=== PATIENT | male | born 1950 | race Caucasian/White ===

== ENCOUNTER 2020-06-12 12:01 | IRF | payer MEDICARE, BC, SELFPAY ==
--- NOTE | 2020-06-12 11:58 | ADMGEN ---
This patient, Subhash Kirk, was admitted to [facility] Room 222-02. Patient/family oriented to hospital policies and general routines including ID bracelet, bed and alarms, visiting hours, pain management, procedures, bathroom and other care routines, personal items, smoking policy, room service/diet, and visiting hours. Information on how to activate the Rapid Response Team has been discussed. Patient/Family are encouraged to report perceived risks to care and to ask questions if they do not understand what they are told or what they should do. Arrived at 1145 via [facility] ,was transferred to bed with 4 assist, He is alert to self, does not know place or time. no c/o pain or discomfort, no SOB. per EMS vital signs stable during transport
[2020-06-12 12:07] VITALS: BP 127/74; PULSE 82; RESP 20; TEMP 36.8; O2SAT 97; BMI 20.2
--- NOTE | 2020-06-12 13:04 | WPDREHABHP ---
H&P: HPI History of Present Illness Date/Time: 06/12/20 13:04 Chief Complaint: bilateral watershed MCA ischemic strokes with dysphagia, left hemiparesis, dysphasia, Narrative: HISTORY OF PRESENT ILLNESS: 70 years old right-handed male has been admitted to the rehab floor of [facility] with primary rehab impairment category of 0 1-stroke and etiological diagnosis of bilateral watershed MCA ischemic strokes with comorbid conditions of 1. Hypertension 2. Hyperlipidemia 3. Tobacco abuse. the patient was seen [id number] on June 12, 2020 at 1:00 p.m. #H/P. 70 years old right-handed male with previous medical history of significant stroke, hypertension, and hyperlipidemia, was transferred to [facility] from 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 The patient's reported that he was last known well on May 24, 2020 then started behaving strangely and having difficulty with speech. This continued throughout the week and then started complaining of right upper extremity weakness, so his transported him to the emergency room. Initial CT scan and CTA revealed a subacute left posterior watershed infarct and minimal evidence of internal watershed infarct also on the same side especially anteriorly. Similarly he had what seems to be an older infarct right occipital region. CTA revealed an occluded right internal carotid artery at its origin and stenosis left ICA at its origin tele stroke was consulted and he was evaluated by Dr. cash. He was placed on aspirin 325 mg and transferred to [facility] for possible surgical intervention. Of note, he had cardiac workup by the histopathologist on April 07, 2020 which included multiple testing. The echocardiogram reveals normal left ventricular systolic function, ejection fraction of 55 to 60%. The palatal carotid Doppler study revealed right carotid artery occlusion at the origin, and left carotid artery stenosis of 80 to 99%. He was referred to Dr. easton a vascular surgeon who was seen on May 26, 2020 with plan to follow up in 2 weeks. Of note the patient echocardiogram was normal the physician did not document neurological deficit during that visit. At [facility] neurosurgery was consulted and performed left carotid endarterectomy on June 09, 2020. He received Ancef antibiotic times 24 hours. He was seen by EDUCATIONAL AIDE and passed swallowing evaluation. He is on dysphagia 1 pureed diet with thin liquids. Physical examination continued to reveal left-sided neglect, left-sided hemiparesis, cognitive limitation, decreased short-term memory, expressive aphasia, balance impairment, decreased gross motor control, and decreased safety awareness. The patient was discharged to [facility] on aspirin 325 mg daily along with atorvastatin Lovenox up until follow-up with the Neurology service. #COVID: The patient has not traveled outside the [place] or had contact with someone who is ill that has traveled outside the [place] in the past 21 days the patient has not traveled to an area of the [place] that is experiencing known transmission of the Coronavirus and has not had close personal contact with anyone that has. The patient does not have a fever. The patient is not experiencing lower respiratory illness symptoms. Patient had a COVID negative test on June 11, 2020. # Therapy was initiated at the acute care facility and the patient transferred to from [facility] on June 12, 2020 FALLS OR SURGERIES: the patient has had major surgery in the last 100 days. The patient has had falls in the past year. The patient has had no falls with injury in the past year. PAST MEDICAL HISTORY: His stroke, hypertension, hyperlipidemia, closed wedge compression fracture of 2nd, 9th and 11 thoracic vertebra, syncope, co abuse, Joshua arthritis, prostate cancer. PAST SURGICAL HISTORY: Prostate cancer surgery. SOCIAL HISTORY: Dandy
[2020-06-12 14:00] VITALS: BP 127/74; PULSE 82; RESP 20; TEMP 36.8; O2SAT 97
[2020-06-12] MEDS: NYSTATIN 100,000 UNITS/ML SUSP 5 ML ORAL.SUSP PO ×2 (17:25→20:23)
[2020-06-12] MEDS: ATORVASTATIN 40 MG TABLET 80 MG PO (20:22)
[2020-06-12] MEDS: MIRTAZAPINE 15 MG TABLET PO (20:23)
[2020-06-12] MEDS: CYCLOBENZAPRINE HCL 10 MG TABLET PO (20:23)
[2020-06-12] MEDS: MELATONIN 3 MG TABLET PO (20:26)
[2020-06-12 22:00] VITALS: BP 181/90; PULSE 89; RESP 18; TEMP 36.9; O2SAT 96
[2020-06-13 04:55] LABS: Basophils Absolute Auto 0.1 K/mm3 (0.0-0.1); Basophils Percent Auto 0.6 % (0.2-1.2); Eosinophils Absolute Auto 0.3 K/mm3 (0-0.3); Eosinophils Percent Auto 2.3 % (0-4.4); Hematocrit 38.4 % (42.0-52.0); Immature Granulocyte Absolute 0.07 K/mm3 (0.00-0.031); Immature Granulocyte Percent A 0.6 % (0-0.5); Lymphocytes Absolute Auto 1.77 K/mm3 (0.9-3.2); Lymphocytes Percent Auto 14.8 % (18.3-44.2); Mean Corpuscular HGB Conc 33.9 g/dl (32-36); Mean Corpuscular Volume 85.7 fl (80-100); Mean Platelet Volume 10.5 fl (7.4-10.4); Monocytes Percent Auto 8.1 % (2.6-8.5); Neutrophils Absolute Auto 8.8 K/mm3 (1.3-6.7); Neutrophils Percent Auto 73.6 % (45.5-73.1); Platelet Count Result 483 k/mm3 (150-375); Red Blood Count 4.48 M/mm3 (4.6-6.20); White Blood Count 11.9 K/mm3 (4.5-10.0)
[2020-06-13 05:05] LABS: Anion Gap 5 mmol/L (8-16); Blood Urea Nitrogen 16 mg/dL (9-20); Calcium 8.6 mg/dL (8.4-10.2); Carbon Dioxide 28 mmol/L (22-30); Chloride 103 mmol/L (98-107); Cholesterol 81 mg/dL (0-200); Estimated CRCL calculation 72 ml/min; Estimated Glomerular Filt Rate > 60; Glucose 110 mg/dL (75-110); HDL Direct 17 mg/dL; Potassium 3.1 mmol/L (3.4-5.0); Sodium 136 mmol/L (137-145); Triglycerides 73 mg/dL (<150)
[2020-06-13 05:13] VITALS: BP 186/92; PULSE 90; RESP 18; TEMP 36.8; O2SAT 96
[2020-06-13 05:16] LABS: LDL Cholesterol Direct 49 mg/dL
[2020-06-13 06:05] VITALS: BP 168/88
[2020-06-13] MEDS: ENOXAPARIN 40 MG/0.4 ML SYRINGE SUB-Q (08:48)
[2020-06-13] MEDS: ASPIRIN 325 MG ENTERIC TABLET PO (08:48)
[2020-06-13] MEDS: lisinopriL 10 MG TABLET PO (08:48)
[2020-06-13] MEDS: NYSTATIN 100,000 UNITS/ML SUSP 5 ML ORAL.SUSP PO ×4 (08:49→21:15)
[2020-06-13] MEDS: THERAPEUTIC MULTIVITAMINS/MINERALS TAB (*BKC) 1 TABLET PO (08:49)
[2020-06-13] MEDS: THIAMINE HCL 100 MG TABLET PO (08:50)
[2020-06-13 14:00] VITALS: BP 158/79; PULSE 97; RESP 18; TEMP 36.5; O2SAT 98
--- NOTE | 2020-06-13 14:40 | PCSTNOTE ---
Please refer to the Bedside Swallow Evaluation in the EMR. Please note, silent aspiration cannot be ruled out at bedside.
[2020-06-13] MEDS: ATORVASTATIN 40 MG TABLET 80 MG PO (21:15)
[2020-06-13] MEDS: CYCLOBENZAPRINE HCL 10 MG TABLET PO (21:15)
[2020-06-13] MEDS: MIRTAZAPINE 15 MG TABLET PO (21:15)
[2020-06-13] MEDS: MELATONIN 3 MG TABLET PO (21:15)
[2020-06-13 21:24] VITALS: BP 145/79; PULSE 81; RESP 18; TEMP 36.4; O2SAT 96
[2020-06-14 05:39] VITALS: BP 156/81; PULSE 88; RESP 22; TEMP 36.3; O2SAT 98
[2020-06-14] MEDS: THERAPEUTIC MULTIVITAMINS/MINERALS TAB (*BKC) 1 TABLET PO (08:44)
[2020-06-14] MEDS: lisinopriL 10 MG TABLET PO (08:44)
[2020-06-14] MEDS: ASPIRIN 325 MG ENTERIC TABLET PO (08:44)
[2020-06-14] MEDS: THIAMINE HCL 100 MG TABLET PO (08:44)
[2020-06-14] MEDS: ENOXAPARIN 40 MG/0.4 ML SYRINGE SUB-Q (08:45)
[2020-06-14] MEDS: NYSTATIN 100,000 UNITS/ML SUSP 5 ML ORAL.SUSP PO ×4 (08:46→21:58)
[2020-06-14 14:00] VITALS: BP 112/74; PULSE 83; RESP 18; TEMP 36.4; O2SAT 94
[2020-06-14 20:20] VITALS: PULSE 69; RESP 18; O2SAT 97
[2020-06-14 21:31] VITALS: BP 144/78; PULSE 69; RESP 18; TEMP 36.6; O2SAT 97
[2020-06-14] MEDS: ATORVASTATIN 40 MG TABLET 80 MG PO (21:58)
[2020-06-14] MEDS: CYCLOBENZAPRINE HCL 10 MG TABLET PO (21:58)
[2020-06-14] MEDS: MIRTAZAPINE 15 MG TABLET PO (21:59)
[2020-06-14] MEDS: MELATONIN 3 MG TABLET PO (21:59)
[2020-06-15 05:47] VITALS: BP 132/76; PULSE 93; RESP 20; TEMP 36.6; O2SAT 96
[2020-06-15 08:00] VITALS: PULSE 93; RESP 20; O2SAT 96
[2020-06-15] MEDS: NYSTATIN 100,000 UNITS/ML SUSP 5 ML ORAL.SUSP PO ×4 (09:28→20:54)
[2020-06-15] MEDS: THERAPEUTIC MULTIVITAMINS/MINERALS TAB (*BKC) 1 TABLET PO (09:29)
[2020-06-15] MEDS: ASPIRIN 325 MG ENTERIC TABLET PO (09:29)
[2020-06-15] MEDS: ENOXAPARIN 40 MG/0.4 ML SYRINGE SUB-Q (09:29)
[2020-06-15] MEDS: lisinopriL 10 MG TABLET PO (09:29)
[2020-06-15] MEDS: THIAMINE HCL 100 MG TABLET PO (09:29)
--- NOTE | 2020-06-15 10:56 | WPDNEURORHBP ---
Subjective Date/time seen: 06/15/20 10:56 70 years old with bilateral watershed MCA ischemic stroke and resultant dysphagia left hemiparesis dysphagia in addition to the comorbid conditions of 1. Hypertension 2. Hyperlipidemia 3. Tobacco abuse Review of Systems Review of Systems: All systems reviewed & are unremarkable except as noted in HPI and below Functional Status Ambulation Ability Ability to Ambulate 10 Feet: Minimum Assistance X 1 Ability to Ambulate 50 Feet With 2 Turns: Minimum Assistance X 1 Ability to Ambulate 150 Feet: Minimum Assistance X 1 Ambulation Assistive Devices: None and Hand Hold Transfers Ability Ability to Transfer In/Out of Chair: Minimum Assistance X 1 Exam Const: General: cooperative and comfortable Nutritional Appearance: average body habitus Limitations: no limitations Eyes: General: appearance normal, both eyes and all related structures Alignment and Position: alignment normal Periorbital: periorbital findings normal Eyelids: eyelids normal Conjunctivae: conjunctivae normal Sclera: sclerae normal Cornea: corneas normal Pupils: Equal, round and reactive pupils present EOM: EOMs intact bilaterally Neck: Neck: full ROM and no lymphadenopathy Resp: Effort & Inspection: normal respiratory effort and able to speak in complete sentences Cardio: Rate: regular rate Skin: General skin exam: no rashes or lesions noted Neuro: General: patient oriented x3 Cranial nerves: Yes CN's II-XII intact bilaterally, Yes Equal, round and reactive pupils present and Yes Nystagmus not present Cognition (Neuro): normal cognition Speech: normal speech Motor exam (neuro): Abnormal motor strength present Sensory Exam: Sensory deficit (Neuro) Psych: Appearance: grossly normal Objective Data Vital Signs Vital Signs: Vital Signs - 24 hr 06/14/20 14:00 06/14/20 20:20 06/14/20 21:31 Temperature 36.4 C 36.6 C Pulse Rate 83 69 69 Respiratory Rate 18 18 18 Blood Pressure 112/74 144/78 H Pulse Oximetry 94 97 97 06/15/20 05:47 Temperature 36.6 C Pulse Rate 93 Respiratory Rate 20 Blood Pressure 132/76 Pulse Oximetry 96 Intake/Output Intake/Output: Intake & Output 06/12/20 06/13/20 06/14/20 06/15/20 23:59 23:59 23:59 23:59 Intake Total 480 480 580 240 Balance 480 480 580 240 Meds/Results Medications: Active Medications Generic Name Dose Route Start Last Admin Trade Name Freq PRN Reason Stop Dose Admin Aspirin 325 mg 06/13/20 09:00 06/15/20 09:29 Aspirin 325 Mg Enteric Tablet PO 325 mg DAILY ANJEL Administration Atorvastatin Calcium 80 mg 06/12/20 21:00 06/14/20 21:58 Atorvastatin 40 Mg Tablet PO 80 mg HS ANJEL Administration Cyclobenzaprine HCl 10 mg 06/12/20 21:00 06/14/20 21:58 Cyclobenzaprine Hcl 10 Mg Tablet PO 10 mg HS ANJEL Administration Enoxaparin Sodium 40 mg 06/13/20 09:00 06/15/20 09:29 Enoxaparin 40 Mg/0.4 Ml Syringe SUB-Q 40 mg DAILY ANJEL Administration Ibuprofen 200 mg 06/12/20 15:45 Ibuprofen 200 Mg Tablet PO Q6H PRN Pain Lisinopril 10 mg 06/13/20 09:00 06/15/20 09:29 Lisinopril 10 Mg Tablet PO 10 mg DAILY ANJEL Administration Melatonin 3 mg 06/12/20 21:00 06/14/20 21:59 Melatonin 3 Mg Tablet PO 3 mg HS ANJEL Administration Mirtazapine 15 mg 06/12/20 21:00 06/14/20 21:59 Mirtazapine 15 Mg Tablet PO 15 mg HS ANJEL Administration Multivitamins/Calcium 1 tablet 06/13/20 09:00 06/15/20 09:29 Therapeutic Multivitamins/Minerals Tab (*Bkc) PO 1 tablet DAILY ANJEL Administration Nystatin 5 ml 06/12/20 17:00 06/15/20 09:28 Nystatin 100,000 Units/Ml Susp 5 Ml Oral.Susp PO 5 ml QID ANJEL Administration Thiamine HCl 100 mg 06/13/20 09:00 06/15/20 09:29 Thiamine Hcl 100 Mg Tablet PO 100 mg DAILY ANJEL Administration Progress Note: A&P Assessment and Plan (1) Tobacco abuse: Code(s): Z72.0 - Tobacco use Status: Acute (2) Hyperlipidemia:
--- NOTE | 2020-06-15 10:57 | RPD ---
INDIVIDUALIZED PLAN OF CARE FOR Subhash Kirk Brief Synthesis of Pre-Admission Screen, Post-Admission Evaluation and Therapy Evaluations: The patient presents to rehab with bilateral watershed MCA ischemic strokes. Comorbidities include chronic infarct in the right parietal lobe, acute left parietal infarct with hemorrhage, acute left watershed infarcts, acute right caudate/striatum infarcts, right ICA occlusion, left ICA severe stenosis >88%, non-fluent aphasia w/paraphasias, left-side neglect, left-hemiparesis, osteoarthritis, tobacco abuse, alcohol use, hypocalcemia, hyponatremia, encephalopathy, hypertension, hyperlipidemia, and spiculated SONIA. The complexity of the patient's medical management, nursing, and therapy needs require an inpatient rehab hospital stay with a physician-led interdisciplinary team approach. The patient?s needs will be best met in an intensive program vs. at a lower level of care. The patient requires physician services for neurology services, medical oversight, and coordination of care. Emotional needs will be monitored as depression is a common sequelae of stroke. The patient needs physician monitoring and treatment of hypocalcemia, hyponatremia, encephalopathy, hypertension, monitoring for adverse reactions to new medications, monitoring of infection, and pain control. The patient requires nursing services for frequent neuro checks, anticoagulation therapy, medication management and education, pressure relief and skin care management, monitoring of labs, bowel and bladder training, diabetes management and education, and fall/safety precautions. The patient will participate in stroke-specific education regarding risk modification to decrease the risk of further stroke. Deficits include:ADLs, Balance, Cognition, Endurance, Family Training/Education, Mobility, Pain Management, ROM, Safety, Speech, Strength, Swallowing, and Transfers. Early Morning/Case Management for: Discharge Planning and Patient/Family Counseling Physical Therapy: 5 days per week for 60 minutes. Treatments may include: Therapeutic Exercise, Gait Training, Neuromuscular Re-education, Transfer Training, Community Reintegration, Bed Mobility, Patient/Family Education, Wheelchair Mobility Group Therapy/Concurrent Therapy Rationales: -Improve attention span during functional activities in a distracted environment. -Enhance problem solving and/or adequate judgment skills during functional activities in a distracted environment. -Promote increased safety awareness in a distracted environment to reduce fall risk with functional tasks, transfers, and ambulation to allow a more safe, self-sufficient return to the home environment. -Improve dynamic balance skills to promote safety and independence with functional activities in a distracted environment for maximum gain. Occupational Therapy: 5 days per week for 60 minutes. Treatments may include: Therapeutic Exercise, Therapeutic Activity, Cognitive Training, Self-Care Transfer Training, Community Reintegration, Home Management, Patient/Family Education, Wheelchair Mobility Training, Energy Conservation Training Group Therapy/Concurrent Therapy Rationales: -Allow therapist to observe and teach generalization and carry-over of skills learned in individual therapy. -Enhance problem solving and sequencing skills during therapeutic activities in a distracted environment. -Promote increased safety awareness in a realistic setting to reduce fall risk with functional tasks due to visual and verbal distractions. -Increase functional level with ADLs, ADL transfers and use of adaptive equipment through therapeutic activities with others while promoting safety to allow a more safe, self-sufficient return home. Speech Therapy: 5 days per week for 60 minutes. Treatments may include: Dysphasia Therapy, Speech/Language/Communication Therapy, Cognitive Training, Patient/Family Education Group Therapy/Concurrent Therapy - Rationale: -Allow t
[2020-06-15 11:22] VITALS: BMI 20.2
[2020-06-15 14:00] VITALS: BP 145/78; PULSE 78; RESP 16; TEMP 36.8; O2SAT 95
[2020-06-15 20:10] VITALS: PULSE 72; RESP 16; O2SAT 95
[2020-06-15] MEDS: MELATONIN 3 MG TABLET PO (20:54)
[2020-06-15] MEDS: MIRTAZAPINE 15 MG TABLET PO (20:54)
[2020-06-15] MEDS: ATORVASTATIN 40 MG TABLET 80 MG PO (20:54)
[2020-06-15] MEDS: CYCLOBENZAPRINE HCL 10 MG TABLET PO (20:54)
[2020-06-15 22:00] VITALS: BP 156/82; PULSE 72; RESP 16; TEMP 36.7; O2SAT 95
[2020-06-16 06:00] VITALS: BP 148/91; PULSE 50; RESP 18; TEMP 36.4; O2SAT 96
[2020-06-16] MEDS: lisinopriL 10 MG TABLET PO (09:54)
[2020-06-16] MEDS: ASPIRIN 325 MG ENTERIC TABLET PO (09:54)
[2020-06-16] MEDS: ENOXAPARIN 40 MG/0.4 ML SYRINGE SUB-Q (09:54)
[2020-06-16] MEDS: THIAMINE HCL 100 MG TABLET PO (09:54)
[2020-06-16] MEDS: NYSTATIN 100,000 UNITS/ML SUSP 5 ML ORAL.SUSP PO ×4 (09:55→20:52)
[2020-06-16] MEDS: THERAPEUTIC MULTIVITAMINS/MINERALS TAB (*BKC) 1 TABLET PO (09:55)
[2020-06-16 14:00] VITALS: BP 123/77; PULSE 71; RESP 20; TEMP 36.8; O2SAT 98
--- NOTE | 2020-06-16 15:06 | WPDNEURORHBP ---
Subjective Date/time seen: 06/16/20 15:06 70 years old with bilateral watershed MCA ischemic stroke with resultant left hemiparesis and dysphagia has been involved in a physical therapy and occupational therapy remains comfortable, vital signs are stable medications unchanged Review of Systems Review of Systems: All systems reviewed & are unremarkable except as noted in HPI and below Functional Status Ambulation Ability Ability to Ambulate 10 Feet: Contact Guard Ability to Ambulate 50 Feet With 2 Turns: Contact Guard Ability to Ambulate 150 Feet: Minimum Assistance X 1 Ambulation Assistive Devices: None and Cane Transfers Ability Ability to Transfer In/Out of Chair: Minimum Assistance X 1 Exam Const: General: cooperative and no acute distress Nutritional Appearance: thin Limitations: physical limitations HENMT: Head: normocephalic General nose exam: No nasal discharge present Face and sinus: normal facial exam Mouth: Yes Normal oral and palatal mucosa present Neck: Neck: full ROM Resp: Effort & Inspection: normal respiratory effort Auscultation: clear to auscultation bilaterally Cardio: Jugular venous distension: no JVD Rate: regular rate Rhythm: regular rhythm GI: Auscultation: normal bowel sounds Neuro: General: patient oriented x3 Cranial nerves: Yes CN's II-XII intact bilaterally Motor exam (neuro): Abnormal motor strength present Objective Data Vital Signs Vital Signs: Vital Signs - 24 hr 06/15/20 20:10 06/15/20 22:00 06/16/20 06:00 Temperature 36.7 C 36.4 C L Pulse Rate 72 72 50 L Respiratory Rate 16 16 18 Blood Pressure 156/82 H 148/91 H Pulse Oximetry 95 95 96 Intake/Output Intake/Output: Intake & Output 06/13/20 06/14/20 06/15/20 06/16/20 23:59 23:59 23:59 23:59 Intake Total 480 580 720 360 Balance 480 580 720 360 Meds/Results Medications: Active Medications Generic Name Dose Route Start Last Admin Trade Name Freq PRN Reason Stop Dose Admin Aspirin 325 mg 06/13/20 09:00 06/16/20 09:54 Aspirin 325 Mg Enteric Tablet PO 325 mg DAILY ANJEL Administration Atorvastatin Calcium 80 mg 06/12/20 21:00 06/15/20 20:54 Atorvastatin 40 Mg Tablet PO 80 mg HS ANJEL Administration Cyclobenzaprine HCl 10 mg 06/12/20 21:00 06/15/20 20:54 Cyclobenzaprine Hcl 10 Mg Tablet PO 10 mg HS ANJEL Administration Enoxaparin Sodium 40 mg 06/13/20 09:00 06/16/20 09:54 Enoxaparin 40 Mg/0.4 Ml Syringe SUB-Q 40 mg DAILY ANJEL Administration Ibuprofen 200 mg 06/12/20 15:45 Ibuprofen 200 Mg Tablet PO Q6H PRN Pain Lisinopril 10 mg 06/13/20 09:00 06/16/20 09:54 Lisinopril 10 Mg Tablet PO 10 mg DAILY ANJEL Administration Melatonin 3 mg 06/12/20 21:00 06/15/20 20:54 Melatonin 3 Mg Tablet PO 3 mg HS ANJEL Administration Mirtazapine 15 mg 06/12/20 21:00 06/15/20 20:54 Mirtazapine 15 Mg Tablet PO 15 mg HS ANJEL Administration Multivitamins/Calcium 1 tablet 06/13/20 09:00 06/16/20 09:55 Therapeutic Multivitamins/Minerals Tab (*Bkc) PO 1 tablet DAILY ANJEL Administration Nystatin 5 ml 06/12/20 17:00 06/16/20 14:21 Nystatin 100,000 Units/Ml Susp 5 Ml Oral.Susp PO 5 ml QID ANJEL Administration Thiamine HCl 100 mg 06/13/20 09:00 06/16/20 09:54 Thiamine Hcl 100 Mg Tablet PO 100 mg DAILY ANJEL Administration Progress Note: A&P Assessment and Plan (1) Tobacco abuse: Code(s): Z72.0 - Tobacco use Status: Acute (2) Hyperlipidemia: Code(s): E78.5 - Hyperlipidemia, unspecified Status: Acute (3) Hypertension: Code(s): I10 - Essential (primary) hypertension Status: Acute (4) Dysphagia: Code(s): R13.10 - Dysphagia, unspecified Status: Acute (5) Expressive dysphasia: Code(s): R47.02 - Dysphasia Status: Acute (6) Cognitive dysfunction: Code(s): F09 - Unspecified mental disorder due to known physiological condition Status:
[2020-06-16] MEDS: ATORVASTATIN 40 MG TABLET 80 MG PO (20:52)
[2020-06-16] MEDS: MIRTAZAPINE 15 MG TABLET PO (20:52)
[2020-06-16] MEDS: MELATONIN 3 MG TABLET PO (20:52)
[2020-06-16] MEDS: CYCLOBENZAPRINE HCL 10 MG TABLET PO (20:52)
[2020-06-16 22:00] VITALS: BP 133/78; PULSE 69; RESP 16; TEMP 36.4; O2SAT 98
[2020-06-17 06:00] VITALS: BP 151/88; PULSE 65; RESP 16; TEMP 36.7; O2SAT 96
[2020-06-17] MEDS: ENOXAPARIN 40 MG/0.4 ML SYRINGE SUB-Q (08:09)
[2020-06-17] MEDS: ASPIRIN 325 MG ENTERIC TABLET PO (08:10)
[2020-06-17] MEDS: THERAPEUTIC MULTIVITAMINS/MINERALS TAB (*BKC) 1 TABLET PO (08:10)
[2020-06-17] MEDS: THIAMINE HCL 100 MG TABLET PO (08:10)
[2020-06-17] MEDS: NYSTATIN 100,000 UNITS/ML SUSP 5 ML ORAL.SUSP PO ×4 (08:10→21:11)
[2020-06-17] MEDS: lisinopriL 10 MG TABLET PO (08:10)
[2020-06-17 14:00] VITALS: BP 126/72; PULSE 79; RESP 20; TEMP 36.3; O2SAT 96
--- NOTE | 2020-06-17 16:36 | WPDNEURORHBP ---
Subjective Date/time seen: 06/17/20 16:36 70 years old status post watershed bilateral ischemic stroke with clinical presentation of left hemiparesis remains afebrile with blood pressure 126/72 no recent change in the medications and no recent lab Review of Systems Review of Systems: All systems reviewed & are unremarkable except as noted in HPI and below Functional Status Ambulation Ability Ability to Ambulate 10 Feet: Contact Guard Ability to Ambulate 50 Feet With 2 Turns: Contact Guard Ability to Ambulate 150 Feet: Contact Guard Ambulation Assistive Devices: None Transfers Ability Ability to Transfer In/Out of Chair: Minimum Assistance X 1 Exam Const: General: cooperative, comfortable, no acute distress, alert and awake Nutritional Appearance: thin Orientation/consciousness: oriented to place, oriented to time and patient oriented x3 Eyes: General: appearance normal, both eyes and all related structures Neck: Neck: full ROM Cardio: Rate: regular rate Rhythm: regular rhythm Skin: General skin exam: no rashes or lesions noted Neuro: General: patient oriented x3 Cranial nerves: Yes CN's II-XII intact bilaterally Speech: normal speech Motor exam (neuro): Abnormal motor strength present Extrem: General: full ROM Objective Data Vital Signs Vital Signs: Vital Signs - 24 hr 06/16/20 22:00 06/17/20 06:00 06/17/20 14:00 Temperature 36.4 C 36.7 C 36.3 C L Pulse Rate 69 65 79 Respiratory Rate 16 16 20 Blood Pressure 133/78 151/88 H 126/72 Pulse Oximetry 98 96 96 Intake/Output Intake/Output: Intake & Output 06/14/20 06/15/20 06/16/20 06/17/20 23:59 23:59 23:59 23:59 Intake Total 580 720 480 600 Balance 580 720 480 600 Meds/Results Medications: Active Medications Generic Name Dose Route Start Last Admin Trade Name Freq PRN Reason Stop Dose Admin Aspirin 325 mg 06/13/20 09:00 06/17/20 08:10 Aspirin 325 Mg Enteric Tablet PO 325 mg DAILY ANJEL Administration Atorvastatin Calcium 80 mg 06/12/20 21:00 06/16/20 20:52 Atorvastatin 40 Mg Tablet PO 80 mg HS ANJEL Administration Cyclobenzaprine HCl 10 mg 06/12/20 21:00 06/16/20 20:52 Cyclobenzaprine Hcl 10 Mg Tablet PO 10 mg HS ANJEL Administration Enoxaparin Sodium 40 mg 06/13/20 09:00 06/17/20 08:09 Enoxaparin 40 Mg/0.4 Ml Syringe SUB-Q 40 mg DAILY ANJEL Administration Ibuprofen 200 mg 06/12/20 15:45 Ibuprofen 200 Mg Tablet PO Q6H PRN Pain Lisinopril 10 mg 06/13/20 09:00 06/17/20 08:10 Lisinopril 10 Mg Tablet PO 10 mg DAILY ANJEL Administration Melatonin 3 mg 06/12/20 21:00 06/16/20 20:52 Melatonin 3 Mg Tablet PO 3 mg HS ANJEL Administration Mirtazapine 15 mg 06/12/20 21:00 06/16/20 20:52 Mirtazapine 15 Mg Tablet PO 15 mg HS ANJEL Administration Multivitamins/Calcium 1 tablet 06/13/20 09:00 06/17/20 08:10 Therapeutic Multivitamins/Minerals Tab (*Bkc) PO 1 tablet DAILY ANJEL Administration Nystatin 5 ml 06/12/20 17:00 06/17/20 13:29 Nystatin 100,000 Units/Ml Susp 5 Ml Oral.Susp PO 5 ml QID ANJEL Administration Thiamine HCl 100 mg 06/13/20 09:00 06/17/20 08:10 Thiamine Hcl 100 Mg Tablet PO 100 mg DAILY ANJEL Administration Progress Note: A&P Assessment and Plan (1) Hyperlipidemia: Code(s): E78.5 - Hyperlipidemia, unspecified Status: Acute (2) Tobacco abuse: Code(s): Z72.0 - Tobacco use Status: Acute (3) Hypertension: Code(s): I10 - Essential (primary) hypertension Status: Acute (4) Dysphagia: Code(s): R13.10 - Dysphagia, unspecified Status: Acute (5) Expressive dysphasia: Code(s): R47.02 - Dysphasia Status: Acute (6) Cognitive dysfunction: Code(s): F09 - Unspecified mental disorder due to known physiological condition Status: Acute (7) Left hemiparesis: Code(s): G81.94 - Hemiplegia, unspecified affecting left nondominant side Sta
[2020-06-17] MEDS: ATORVASTATIN 40 MG TABLET 80 MG PO (21:10)
[2020-06-17] MEDS: MIRTAZAPINE 15 MG TABLET PO (21:11)
[2020-06-17] MEDS: CYCLOBENZAPRINE HCL 10 MG TABLET PO (21:11)
[2020-06-17] MEDS: MELATONIN 3 MG TABLET PO (21:11)
[2020-06-17 22:00] VITALS: BP 133/80; PULSE 70; RESP 18; TEMP 36.6; O2SAT 96
[2020-06-18 06:00] VITALS: BP 154/86; PULSE 80; RESP 18; TEMP 36.6; O2SAT 95
[2020-06-18] MEDS: ENOXAPARIN 40 MG/0.4 ML SYRINGE SUB-Q (08:34)
[2020-06-18] MEDS: THIAMINE HCL 100 MG TABLET PO (08:35)
[2020-06-18] MEDS: NYSTATIN 100,000 UNITS/ML SUSP 5 ML ORAL.SUSP PO ×4 (08:35→22:13)
[2020-06-18] MEDS: lisinopriL 10 MG TABLET PO (08:36)
[2020-06-18] MEDS: THERAPEUTIC MULTIVITAMINS/MINERALS TAB (*BKC) 1 TABLET PO (08:36)
[2020-06-18] MEDS: ASPIRIN 325 MG ENTERIC TABLET PO (08:36)
--- NOTE | 2020-06-18 12:44 | PCNFU ---
Nutrition Follow-Up Complete: Suboptimal oral intake related to CVA as evidenced by intakes averaging 50% of meals with patient stating dislike of modified diet. Goal: Patient to consume 75% of meals/supplements or greater. Patient is meeting intake goal most of the time but reports taking Frozen Nutritional Treat consistently. Continue working towards goal. Pt current nutrition is regular diet with minced and most level 5. Last recorded weight is 58.5 kg. Recommend re-weighing patient. Bowel Motility: + BM 06/17 Labs Reviewed: No new labs. Meds Noted: Lipitor, Flexeril, Lovenox, Prinivil, Remeron, Vitamin B-1 Additional Notes: Spoke with patient. Patient stated the food is okay but the portions are too big. He said he is eating enough it is just way too much food for him. He enjoys receiving the frozen nutritional treat providing an additional 300 calories and 9 grams of protein. Follow up in 7 days.
--- NOTE | 2020-06-18 13:14 | PCNSR ---
On 06/18/20, the student, Shelly Gomez, provided care and completed [facility] documentation on this patient. I have reviewed the student's documentation and agree with the findings.
[2020-06-18 14:00] VITALS: BP 117/68; PULSE 74; RESP 14; TEMP 37.7; O2SAT 95
[2020-06-18 20:27] VITALS: BP 137/75; PULSE 72; RESP 20; TEMP 36.8; O2SAT 96
[2020-06-18] MEDS: ATORVASTATIN 40 MG TABLET 80 MG PO (22:10)
[2020-06-18] MEDS: CYCLOBENZAPRINE HCL 10 MG TABLET PO (22:11)
[2020-06-18] MEDS: MIRTAZAPINE 15 MG TABLET PO (22:12)
[2020-06-18] MEDS: MELATONIN 3 MG TABLET PO (22:12)
[2020-06-19 05:07] VITALS: BP 150/88; PULSE 81; RESP 18; TEMP 36.6; O2SAT 100
[2020-06-19] MEDS: THERAPEUTIC MULTIVITAMINS/MINERALS TAB (*BKC) 1 TABLET PO (08:58)
[2020-06-19] MEDS: lisinopriL 10 MG TABLET PO (08:58)
[2020-06-19] MEDS: ASPIRIN 325 MG ENTERIC TABLET PO (08:58)
[2020-06-19] MEDS: ENOXAPARIN 40 MG/0.4 ML SYRINGE SUB-Q (08:58)
[2020-06-19] MEDS: THIAMINE HCL 100 MG TABLET PO (08:59)
[2020-06-19] MEDS: NYSTATIN 100,000 UNITS/ML SUSP 5 ML ORAL.SUSP PO ×4 (08:59→20:59)
--- NOTE | 2020-06-19 13:44 | WPDNEURORHBP ---
Subjective Date/time seen: 06/19/20 13:44 70 years old with motor showed bilateral ischemic stroke and clinical presentation of left hemiparesis remains stable involved in the physical therapy and occupational therapy Trace signs stable with a blood pressure today is 150/88, medication at this time are unchanged Review of Systems Review of Systems: All systems reviewed & are unremarkable except as noted in HPI and below Functional Status Ambulation Ability Ability to Ambulate 10 Feet: Standby Assistance Ability to Ambulate 50 Feet With 2 Turns: Standby Assistance Ability to Ambulate 150 Feet: Contact Guard Ambulation Assistive Devices: None Transfers Ability Ability to Transfer In/Out of Chair: Standby Assistance Exam Const: General: cooperative, healthy appearing and no acute distress Nutritional Appearance: thin Orientation/consciousness: patient oriented x3 Limitations: no limitations HENMT: Head: normocephalic Ears: hearing grossly normal bilaterally General nose exam: Normal external nose present and No nasal discharge present Face and sinus: normal facial exam Mouth: Yes Normal oral and palatal mucosa present Eyes: General: appearance normal, both eyes and all related structures Neck: Neck: full ROM and no lymphadenopathy Resp: Effort & Inspection: normal respiratory effort and able to speak in complete sentences Auscultation: clear to auscultation bilaterally Cardio: Rate: regular rate Rhythm: regular rhythm GI: Auscultation: normal bowel sounds Neuro: General: patient oriented x3 Cranial nerves: Yes CN's II-XII intact bilaterally Cognition (Neuro): normal cognition Motor exam (neuro): 5/5 motor strength present throughout, Pronator motor function not present and No tremor noted Sensory Exam: normal sensation Extrem: General: normal to inspection Psych: Appearance: grossly normal Objective Data Vital Signs Vital Signs: Vital Signs - 24 hr 06/18/20 14:00 06/18/20 20:27 06/19/20 05:07 Temperature 37.7 C H 36.8 C 36.6 C Pulse Rate 74 72 81 Respiratory Rate 14 20 18 Blood Pressure 117/68 137/75 150/88 H Pulse Oximetry 95 96 100 Intake/Output Intake/Output: Intake & Output 06/16/20 06/17/20 06/18/20 06/19/20 23:59 23:59 23:59 23:59 Intake Total 480 840 960 480 Balance 480 840 960 480 Meds/Results Medications: Active Medications Generic Name Dose Route Start Last Admin Trade Name Freq PRN Reason Stop Dose Admin Aspirin 325 mg 06/13/20 09:00 06/19/20 08:58 Aspirin 325 Mg Enteric Tablet PO 325 mg DAILY ANJEL Administration Atorvastatin Calcium 80 mg 06/12/20 21:00 06/18/20 22:10 Atorvastatin 40 Mg Tablet PO 80 mg HS ANJEL Administration Cyclobenzaprine HCl 10 mg 06/12/20 21:00 06/18/20 22:11 Cyclobenzaprine Hcl 10 Mg Tablet PO 10 mg HS ANJEL Administration Enoxaparin Sodium 40 mg 06/13/20 09:00 06/19/20 08:58 Enoxaparin 40 Mg/0.4 Ml Syringe SUB-Q 40 mg DAILY ANJEL Administration Ibuprofen 200 mg 06/12/20 15:45 Ibuprofen 200 Mg Tablet PO Q6H PRN Pain Lisinopril 10 mg 06/13/20 09:00 06/19/20 08:58 Lisinopril 10 Mg Tablet PO 10 mg DAILY ANJEL Administration Melatonin 3 mg 06/12/20 21:00 06/18/20 22:12 Melatonin 3 Mg Tablet PO 3 mg HS ANJEL Administration Mirtazapine 15 mg 06/12/20 21:00 06/18/20 22:12 Mirtazapine 15 Mg Tablet PO 15 mg HS ANJEL Administration Multivitamins/Calcium 1 tablet 06/13/20 09:00 06/19/20 08:58 Therapeutic Multivitamins/Minerals Tab (*Bkc) PO 1 tablet DAILY ANJEL Administration Nystatin 5 ml 06/12/20 17:00 06/19/20 13:31 Nystatin 100,000 Units/Ml Susp 5 Ml Oral.Susp PO 5 ml QID ANJEL Administration Thiamine HCl 100 mg 06/13/20 09:00 06/19/20 08:59 Thiamine Hcl 100 Mg Tablet PO 100 mg DAILY ANJEL Administration Progress Note: A&P Assessment and Plan (1) Tobacco abuse: Code(s): Z72.0 - Tobacco use Status: Acute (2) Hyp
[2020-06-19 14:00] VITALS: BP 147/76; PULSE 75; RESP 18; TEMP 36.1; O2SAT 97
[2020-06-19 20:00] VITALS: PULSE 74; RESP 16; O2SAT 98
[2020-06-19] MEDS: MIRTAZAPINE 15 MG TABLET PO (20:58)
[2020-06-19] MEDS: ATORVASTATIN 40 MG TABLET 80 MG PO (20:58)
[2020-06-19] MEDS: CYCLOBENZAPRINE HCL 10 MG TABLET PO (20:58)
[2020-06-19] MEDS: MELATONIN 3 MG TABLET PO (20:58)
[2020-06-19 22:00] VITALS: BP 173/90; PULSE 74; RESP 16; TEMP 36.6; O2SAT 98
[2020-06-20 05:34] LABS: Basophils Absolute Auto 0.1 K/mm3 (0.0-0.1); Basophils Percent Auto 1.2 % (0.2-1.2); Eosinophils Absolute Auto 0.3 K/mm3 (0-0.3); Eosinophils Percent Auto 3.9 % (0-4.4); Hematocrit 37.9 % (42.0-52.0); Hemoglobin 12.4 g/dL (14.0-18.0); Immature Granulocyte Absolute 0.02 K/mm3 (0.00-0.031); Immature Granulocyte Percent A 0.3 % (0-0.5); Lymphocytes Absolute Auto 2.13 K/mm3 (0.9-3.2); Lymphocytes Percent Auto 32.2 % (18.3-44.2); Mean Corpuscular HGB Conc 32.7 g/dl (32-36); Mean Corpuscular Hemoglobin 28.4 pg (26-34); Mean Corpuscular Volume 86.9 fl (80-100); Mean Platelet Volume 10.8 fl (7.4-10.4); Monocytes Absolute Auto 0.6 K/mm3 (0.1-0.6); Monocytes Percent Auto 8.9 % (2.6-8.5); Neutrophils Absolute Auto 3.5 K/mm3 (1.3-6.7); Neutrophils Percent Auto 53.5 % (45.5-73.1); Platelet Count Result 461 k/mm3 (150-375); Red Blood Count 4.36 M/mm3 (4.6-6.20); Red Cell Distribution Width 12.6 % (11.5-14.5); White Blood Count 6.6 K/mm3 (4.5-10.0)
[2020-06-20 05:48] LABS: Anion Gap 5 mmol/L (8-16); Blood Urea Nitrogen 19 mg/dL (9-20); Calcium 8.9 mg/dL (8.4-10.2); Carbon Dioxide 30 mmol/L (22-30); Chloride 104 mmol/L (98-107); Estimated CRCL calculation 64 ml/min; Estimated Glomerular Filt Rate > 60; Glucose 97 mg/dL (75-110); Potassium 3.5 mmol/L (3.4-5.0); Sodium 139 mmol/L (137-145)
[2020-06-20 06:00] VITALS: BP 183/91; PULSE 80; RESP 16; TEMP 37.1; O2SAT 100
[2020-06-20] MEDS: NYSTATIN 100,000 UNITS/ML SUSP 5 ML ORAL.SUSP PO ×4 (08:46→20:42)
[2020-06-20] MEDS: ENOXAPARIN 40 MG/0.4 ML SYRINGE SUB-Q (08:46)
[2020-06-20] MEDS: THIAMINE HCL 100 MG TABLET PO (08:47)
[2020-06-20] MEDS: ASPIRIN 325 MG ENTERIC TABLET PO (08:47)
[2020-06-20] MEDS: lisinopriL 10 MG TABLET PO (08:47)
[2020-06-20] MEDS: THERAPEUTIC MULTIVITAMINS/MINERALS TAB (*BKC) 1 TABLET PO (08:47)
[2020-06-20 14:00] VITALS: BP 141/69; PULSE 82; RESP 16; TEMP 36.6; O2SAT 99
[2020-06-20 20:10] VITALS: PULSE 76; RESP 16; O2SAT 97
[2020-06-20] MEDS: MIRTAZAPINE 15 MG TABLET PO (20:41)
[2020-06-20] MEDS: ATORVASTATIN 40 MG TABLET 80 MG PO (20:41)
[2020-06-20] MEDS: MELATONIN 3 MG TABLET PO (20:41)
[2020-06-20] MEDS: CYCLOBENZAPRINE HCL 10 MG TABLET PO (20:41)
[2020-06-20 22:00] VITALS: BP 147/80; PULSE 76; RESP 16; TEMP 37.1; O2SAT 97
[2020-06-21 06:00] VITALS: BP 166/97; PULSE 81; RESP 18; TEMP 37; O2SAT 99
[2020-06-21] MEDS: THERAPEUTIC MULTIVITAMINS/MINERALS TAB (*BKC) 1 TABLET PO (08:29)
[2020-06-21] MEDS: ENOXAPARIN 40 MG/0.4 ML SYRINGE SUB-Q (08:29)
[2020-06-21] MEDS: NYSTATIN 100,000 UNITS/ML SUSP 5 ML ORAL.SUSP PO ×4 (08:29→20:09)
[2020-06-21] MEDS: ASPIRIN 325 MG ENTERIC TABLET PO (08:29)
[2020-06-21] MEDS: lisinopriL 10 MG TABLET PO (08:29)
[2020-06-21] MEDS: THIAMINE HCL 100 MG TABLET PO (08:29)
--- NOTE | 2020-06-21 13:32 | WPDNEURORHBP ---
Subjective Date/time seen: 06/21/20 13:32 70 years old with left hemiparesis has been involved in the physical and occupational therapy, CBC yesterday was normal with hemoglobin 12.4 WBC 6.6 platelet count 461 and normal basic metabolic panel, has remained afebrile with temp 37.0? blood pressure 166/97 elevated today and he is on room air Review of Systems Review of Systems: All systems reviewed & are unremarkable except as noted in HPI and below Functional Status Ambulation Ability Ability to Ambulate 10 Feet: Independent Ability to Ambulate 50 Feet With 2 Turns: Standby Assistance Ability to Ambulate 150 Feet: Contact Guard Ambulation Assistive Devices: None Transfers Ability Ability to Transfer In/Out of Chair: Independent Exam Const: General: cooperative, healthy appearing, comfortable, no acute distress, alert and awake Nutritional Appearance: thin Orientation/consciousness: oriented to person and patient oriented x3 Eyes: General: appearance normal, both eyes and all related structures Neck: Neck: full ROM Resp: Effort & Inspection: normal respiratory effort Auscultation: clear to auscultation bilaterally Cardio: Rate: regular rate Rhythm: regular rhythm GI: Auscultation: normal bowel sounds Neuro: General: patient oriented x3 Cranial nerves: Yes CN's II-XII intact bilaterally Cognition (Neuro): normal cognition Motor exam (neuro): 5/5 motor strength present throughout Psych: Appearance: grossly normal Objective Data Vital Signs Vital Signs: Vital Signs - 24 hr 06/20/20 14:00 06/20/20 20:10 06/20/20 22:00 Temperature 36.6 C 37.1 C Pulse Rate 82 76 76 Respiratory Rate 16 16 16 Blood Pressure 141/69 H 147/80 H Pulse Oximetry 99 97 97 06/21/20 06:00 Temperature 37.0 C Pulse Rate 81 Respiratory Rate 18 Blood Pressure 166/97 H Pulse Oximetry 99 Intake/Output Intake/Output: Intake & Output 06/18/20 06/19/20 06/20/20 06/21/20 23:59 23:59 23:59 23:59 Intake Total 455 713 0729 480 Balance 390 499 8491 480 Meds/Results Medications: Active Medications Generic Name Dose Route Start Last Admin Trade Name Freq PRN Reason Stop Dose Admin Aspirin 325 mg 06/13/20 09:00 06/21/20 08:29 Aspirin 325 Mg Enteric Tablet PO 325 mg DAILY ANJEL Administration Atorvastatin Calcium 80 mg 06/12/20 21:00 06/20/20 20:41 Atorvastatin 40 Mg Tablet PO 80 mg HS ANJEL Administration Cyclobenzaprine HCl 10 mg 06/12/20 21:00 06/20/20 20:41 Cyclobenzaprine Hcl 10 Mg Tablet PO 10 mg HS ANJEL Administration Enoxaparin Sodium 40 mg 06/13/20 09:00 06/21/20 08:29 Enoxaparin 40 Mg/0.4 Ml Syringe SUB-Q 40 mg DAILY ANJEL Administration Ibuprofen 200 mg 06/12/20 15:45 Ibuprofen 200 Mg Tablet PO Q6H PRN Pain Lisinopril 10 mg 06/13/20 09:00 06/21/20 08:29 Lisinopril 10 Mg Tablet PO 10 mg DAILY ANJEL Administration Melatonin 3 mg 06/12/20 21:00 06/20/20 20:41 Melatonin 3 Mg Tablet PO 3 mg HS ANJEL Administration Mirtazapine 15 mg 06/12/20 21:00 06/20/20 20:41 Mirtazapine 15 Mg Tablet PO 15 mg HS ANJEL Administration Multivitamins/Calcium 1 tablet 06/13/20 09:00 06/21/20 08:29 Therapeutic Multivitamins/Minerals Tab (*Bkc) PO 1 tablet DAILY ANJEL Administration Nystatin 5 ml 06/12/20 17:00 06/21/20 13:13 Nystatin 100,000 Units/Ml Susp 5 Ml Oral.Susp PO 5 ml QID ANJEL Administration Thiamine HCl 100 mg 06/13/20 09:00 06/21/20 08:29 Thiamine Hcl 100 Mg Tablet PO 100 mg DAILY ANJEL Administration Progress Note: A&P Assessment and Plan (1) Tobacco abuse: Code(s): Z72.0 - Tobacco use Status: Acute (2) Hyperlipidemia: Code(s): E78.5 - Hyperlipidemia, unspecified Status: Acute (3) Hypertension: Code(s): I10 - Essential (primary) hypertension Status: Acute (4) Dysphagia: Code(s): R13.10 - Dysphagia, unspecified Status: Acute (5) Expressive dysph
[2020-06-21 14:00] VITALS: BP 123/73; PULSE 74; RESP 20; TEMP 37.2; O2SAT 97
[2020-06-21] MEDS: ATORVASTATIN 40 MG TABLET 80 MG PO (20:08)
[2020-06-21] MEDS: MIRTAZAPINE 15 MG TABLET PO (20:09)
[2020-06-21] MEDS: MELATONIN 3 MG TABLET PO (20:09)
[2020-06-21] MEDS: CYCLOBENZAPRINE HCL 10 MG TABLET PO (20:09)
[2020-06-21 20:10] VITALS: PULSE 74; RESP 20; O2SAT 97
[2020-06-21 21:48] VITALS: BP 129/73; PULSE 71; RESP 16; TEMP 37.1; O2SAT 96
[2020-06-22 06:00] VITALS: BP 147/90; PULSE 74; RESP 16; TEMP 36.8; O2SAT 98
[2020-06-22] MEDS: THIAMINE HCL 100 MG TABLET PO (08:29)
[2020-06-22] MEDS: ASPIRIN 325 MG ENTERIC TABLET PO (08:29)
[2020-06-22] MEDS: ENOXAPARIN 40 MG/0.4 ML SYRINGE SUB-Q (08:29)
[2020-06-22] MEDS: lisinopriL 10 MG TABLET PO (08:29)
[2020-06-22] MEDS: THERAPEUTIC MULTIVITAMINS/MINERALS TAB (*BKC) 1 TABLET PO (08:29)
[2020-06-22] MEDS: NYSTATIN 100,000 UNITS/ML SUSP 5 ML ORAL.SUSP PO ×4 (08:29→20:59)
--- NOTE | 2020-06-22 10:53 | WPDNEURORHBP ---
Subjective Date/time seen: 06/22/20 10:53 No complaints Review of Systems Constitutional: Comments: patient appears anxious Eyes: Comments: external muscles are intact ENT: Reports Normal hearing present and Reports change in voice ( patient hesitancy and a soft quality) Cardiovascular: Cardiovascular: Reports no additional cardiovascular complaints Respiratory: Respiratory: Reports no additional respiratory complaints Gastrointestinal: Gastrointestinal: Reports no additional gastrointestinal complaints Musculoskeletal: Comments: patient has complaints of slow movement Functional Status Ambulation Ability Ability to Ambulate 10 Feet: Independent Ability to Ambulate 50 Feet With 2 Turns: Standby Assistance Ability to Ambulate 150 Feet: Contact Guard Ambulation Assistive Devices: None Transfers Ability Ability to Transfer In/Out of Chair: Independent Exam Const: General: cooperative, comfortable, no acute distress, alert, awake and anxious Nutritional Appearance: thin Orientation/consciousness: oriented to person and confusion Limitations: physical limitations HENMT: Head: normocephalic Ears: hearing grossly normal bilaterally and external ears normal General nose exam: Normal external nose present Face and sinus: normal facial exam Mouth: Yes Normal oral and palatal mucosa present Eyes: Eyelids: eyelids normal Conjunctivae: conjunctivae normal Sclera: sclerae normal EOM: EOMs intact bilaterally Resp: Effort & Inspection: normal respiratory effort Auscultation: clear to auscultation bilaterally Cardio: Rhythm: regular rhythm GI: Auscultation: normal bowel sounds Neuro: General: patient oriented x3 Cranial nerves: Yes CN's II-XII intact bilaterally, Yes Facial sensation intact/muscles of mastication intact, Yes Equal, round and reactive pupils present, Yes Bilaterally intact EOM present, Yes Nystagmus not present, Yes Midline tongue present, Yes Symmetric palate elevation present, Yes Normal hearing present and Yes Ability to bilaterally rotate head present Other: patient demonstrates motor apraxia Objective Data Vital Signs Vital Signs: Vital Signs - 24 hr 06/21/20 14:00 06/21/20 20:10 06/21/20 21:48 Temperature 37.2 C 37.1 C Pulse Rate 74 74 71 Respiratory Rate 20 20 16 Blood Pressure 123/73 129/73 Pulse Oximetry 97 97 96 06/22/20 06:00 Temperature 36.8 C Pulse Rate 74 Respiratory Rate 16 Blood Pressure 147/90 H Pulse Oximetry 98 Intake/Output Intake/Output: Intake & Output 06/19/20 06/20/20 06/21/20 06/22/20 23:59 23:59 23:59 23:59 Intake Total 580 1080 720 240 Balance 580 1080 720 240 Meds/Results Medications: Active Medications Generic Name Dose Route Start Last Admin Trade Name Katie PRN Reason Stop Dose Admin Aspirin 325 mg 06/13/20 09:00 06/22/20 08:29 Aspirin 325 Mg Enteric Tablet PO 325 mg DAILY ANJEL Administration Atorvastatin Calcium 80 mg 06/12/20 21:00 06/21/20 20:08 Atorvastatin 40 Mg Tablet PO 80 mg HS ANJEL Administration Cyclobenzaprine HCl 10 mg 06/12/20 21:00 06/21/20 20:09 Cyclobenzaprine Hcl 10 Mg Tablet PO 10 mg HS ANJEL Administration Enoxaparin Sodium 40 mg 06/13/20 09:00 06/22/20 08:29 Enoxaparin 40 Mg/0.4 Ml Syringe SUB-Q 40 mg DAILY ANJEL Administration Ibuprofen 200 mg 06/12/20 15:45 Ibuprofen 200 Mg Tablet PO Q6H PRN Pain Lisinopril 10 mg 06/13/20 09:00 06/22/20 08:29 Lisinopril 10 Mg Tablet PO 10 mg DAILY ANJEL Administration Melatonin 3 mg 06/12/20 21:00 06/21/20 20:09 Melatonin 3 Mg Tablet PO 3 mg HS ANJEL Administration Mirtazapine 15 mg 06/12/20 21:00 06/21/20 20:09 Mirtazapine 15 Mg Tablet PO 15 mg HS ANJEL Administration Multivitamins/Calcium 1 tablet 06/13/20 09:00 06/22/20 08:29 Therapeutic Multivitamins/Minerals Tab (*Bkc) PO 1 tablet DAILY ANJEL Administration Nystatin 5 ml 06/12/20 17:00 06/22/20 08:29 Nystatin 100,000
[2020-06-22 14:00] VITALS: BP 101/68; PULSE 77; RESP 18; TEMP 37.2; O2SAT 97
[2020-06-22] MEDS: CYCLOBENZAPRINE HCL 10 MG TABLET PO (20:58)
[2020-06-22] MEDS: ATORVASTATIN 40 MG TABLET 80 MG PO (20:58)
[2020-06-22] MEDS: MELATONIN 3 MG TABLET PO (20:59)
[2020-06-22] MEDS: MIRTAZAPINE 15 MG TABLET PO (20:59)
[2020-06-22 22:00] VITALS: BP 146/74; PULSE 75; RESP 16; TEMP 36.9; O2SAT 95
[2020-06-23 06:00] VITALS: BP 162/88; PULSE 73; RESP 16; TEMP 37; O2SAT 98
[2020-06-23] MEDS: lisinopriL 10 MG TABLET PO (09:24)
[2020-06-23] MEDS: THERAPEUTIC MULTIVITAMINS/MINERALS TAB (*BKC) 1 TABLET PO (09:24)
[2020-06-23] MEDS: NYSTATIN 100,000 UNITS/ML SUSP 5 ML ORAL.SUSP PO ×4 (09:24→20:57)
[2020-06-23] MEDS: ASPIRIN 325 MG ENTERIC TABLET PO (09:24)
[2020-06-23] MEDS: THIAMINE HCL 100 MG TABLET PO (09:24)
[2020-06-23] MEDS: ENOXAPARIN 40 MG/0.4 ML SYRINGE SUB-Q (09:24)
--- NOTE | 2020-06-23 13:04 | WPDNEURORHBP ---
Subjective Date/time seen: 06/23/20 13:04 Patient was seen during speech therapy patient voices no complaints. Patient was present during team conference today. all questions were answered Review of Systems Review of Systems: All systems reviewed & are unremarkable except as noted in HPI and below Functional Status Ambulation Ability Ability to Ambulate 10 Feet: Independent Ability to Ambulate 50 Feet With 2 Turns: Independent Ability to Ambulate 150 Feet: Independent Ambulation Assistive Devices: None Transfers Ability Ability to Transfer In/Out of Chair: Independent Exam Narrative: Exam Narrative: patient is alert oriented patient continues to have cognitive deficits. Head is normocephalic extraocular muscles are intact. Right-sided visual field cut is noted. Right-sided neglect is present. Patient demonstrates right motor apraxia and a half grade to full grade weakness compared to the left. Function: Patient is at supervision with ADLs. Gait is 300 ft without assistive device at a supervised independent level barriers are safety in visual neglect of right side Objective Data Vital Signs Vital Signs: Vital Signs - 24 hr 06/22/20 14:00 06/22/20 22:00 06/23/20 06:00 Temperature 37.2 C 36.9 C 37.0 C Pulse Rate 77 75 73 Respiratory Rate 18 16 16 Blood Pressure 101/68 146/74 H 162/88 H Pulse Oximetry 97 95 98 Intake/Output Intake/Output: Intake & Output 06/20/20 06/21/20 06/22/20 06/23/20 23:59 23:59 23:59 23:59 Intake Total 1080 720 720 480 Balance 1080 720 720 480 Meds/Results Medications: Active Medications Generic Name Dose Route Start Last Admin Trade Name Katie PRN Reason Stop Dose Admin Aspirin 325 mg 06/13/20 09:00 06/23/20 09:24 Aspirin 325 Mg Enteric Tablet PO 325 mg DAILY ANJEL Administration Atorvastatin Calcium 80 mg 06/12/20 21:00 06/22/20 20:58 Atorvastatin 40 Mg Tablet PO 80 mg HS ANJEL Administration Cyclobenzaprine HCl 10 mg 06/12/20 21:00 06/22/20 20:58 Cyclobenzaprine Hcl 10 Mg Tablet PO 10 mg HS ANJEL Administration Enoxaparin Sodium 40 mg 06/13/20 09:00 06/23/20 09:24 Enoxaparin 40 Mg/0.4 Ml Syringe SUB-Q 40 mg DAILY ANJEL Administration Ibuprofen 200 mg 06/12/20 15:45 Ibuprofen 200 Mg Tablet PO Q6H PRN Pain Lisinopril 10 mg 06/13/20 09:00 06/23/20 09:24 Lisinopril 10 Mg Tablet PO 10 mg DAILY ANJEL Administration Melatonin 3 mg 06/12/20 21:00 06/22/20 20:59 Melatonin 3 Mg Tablet PO 3 mg HS ANJEL Administration Mirtazapine 15 mg 06/12/20 21:00 06/22/20 20:59 Mirtazapine 15 Mg Tablet PO 15 mg HS ANJEL Administration Multivitamins/Calcium 1 tablet 06/13/20 09:00 06/23/20 09:24 Therapeutic Multivitamins/Minerals Tab (*Bkc) PO 1 tablet DAILY ANJEL Administration Nystatin 5 ml 06/12/20 17:00 06/23/20 11:51 Nystatin 100,000 Units/Ml Susp 5 Ml Oral.Susp PO 07/23/20 17:01 5 ml QID ANJEL Administration Thiamine HCl 100 mg 06/13/20 09:00 06/23/20 09:24 Thiamine Hcl 100 Mg Tablet PO 100 mg DAILY ANJEL Administration Progress Note: A&P Assessment and Plan (1) Cognitive dysfunction: Code(s): F09 - Unspecified mental disorder due to known physiological condition Status: Acute (2) Expressive dysphasia: Code(s): R47.02 - Dysphasia Status: Acute (3) Left hemiparesis: Code(s): G81.94 - Hemiplegia, unspecified affecting left nondominant side Status: Acute (4) Dysphagia: Code(s): R13.10 - Dysphagia, unspecified Status: Acute (5) Hypertension: Code(s): I10 - Essential (primary) hypertension Status: Acute (6) Hyperlipidemia: Code(s): E78.5 - Hyperlipidemia, unspecified Status: Acute (7) Tobacco abuse: Code(s): Z72.0 - Tobacco use Status: Acute Additional Plan patient was present during team conference. was present via the phone. Patient has been making nice
[2020-06-23 14:00] VITALS: BP 152/78; PULSE 77; RESP 18; TEMP 36.2; O2SAT 97
[2020-06-23 20:32] VITALS: BP 133/60; PULSE 70; RESP 22; TEMP 36.6; O2SAT 99
[2020-06-23] MEDS: ATORVASTATIN 40 MG TABLET 80 MG PO (20:56)
[2020-06-23] MEDS: MIRTAZAPINE 15 MG TABLET PO (20:56)
[2020-06-23] MEDS: CYCLOBENZAPRINE HCL 10 MG TABLET PO (20:57)
[2020-06-23] MEDS: MELATONIN 3 MG TABLET PO (20:57)
[2020-06-23 21:00] VITALS: PULSE 70; RESP 22; O2SAT 99
[2020-06-24 06:00] VITALS: BP 142/82; PULSE 78; RESP 20; TEMP 36.8; O2SAT 99
[2020-06-24] MEDS: THIAMINE HCL 100 MG TABLET PO (08:08)
[2020-06-24] MEDS: lisinopriL 10 MG TABLET PO (08:08)
[2020-06-24] MEDS: ASPIRIN 325 MG ENTERIC TABLET PO (08:08)
[2020-06-24] MEDS: THERAPEUTIC MULTIVITAMINS/MINERALS TAB (*BKC) 1 TABLET PO (08:08)
[2020-06-24] MEDS: NYSTATIN 100,000 UNITS/ML SUSP 5 ML ORAL.SUSP PO ×4 (08:08→21:11)
[2020-06-24] MEDS: ENOXAPARIN 40 MG/0.4 ML SYRINGE SUB-Q (08:09)
[2020-06-24 14:00] VITALS: BP 131/69; PULSE 78; RESP 18; TEMP 36.5; O2SAT 100
--- NOTE | 2020-06-24 15:41 | WPDNEURORHBP ---
Subjective Date/time seen: 06/24/20 15:41 Patient with no complaints. Review of Systems Review of Systems: All systems reviewed & are unremarkable except as noted in HPI and below Functional Status Ambulation Ability Ability to Ambulate 10 Feet: Independent Ability to Ambulate 50 Feet With 2 Turns: Independent Ability to Ambulate 150 Feet: Independent Ambulation Assistive Devices: None Transfers Ability Ability to Transfer In/Out of Chair: Independent Exam Const: General: cooperative HENMT: Head: normal to inspection Chest: Chest palpation & inspection: normal inspection of the chest Resp: Effort & Inspection: normal respiratory effort Cardio: Rate: regular rate Neuro: General: oriented to person and tone normal Cranial nerves: Yes Bilaterally intact EOM present Other: cognitive deficits persist. Patient with word finding deficits. Right visual field cut Objective Data Vital Signs Vital Signs: Vital Signs - 24 hr 06/23/20 20:32 06/23/20 21:00 06/24/20 06:00 Temperature 36.6 C 36.8 C Pulse Rate 70 70 78 Respiratory Rate 22 H 22 H 20 Blood Pressure 133/60 142/82 H Pulse Oximetry 99 99 99 06/24/20 14:00 Temperature 36.5 C Pulse Rate 78 Respiratory Rate 18 Blood Pressure 131/69 Pulse Oximetry 100 Intake/Output Intake/Output: Intake & Output 06/21/20 06/22/20 06/23/20 06/24/20 23:59 23:59 23:59 23:59 Intake Total 720 720 720 720 Balance 720 720 720 720 Meds/Results Medications: Active Medications Generic Name Dose Route Start Last Admin Trade Name Freq PRN Reason Stop Dose Admin Aspirin 325 mg 06/13/20 09:00 06/24/20 08:08 Aspirin 325 Mg Enteric Tablet PO 325 mg DAILY ANJEL Administration Atorvastatin Calcium 80 mg 06/12/20 21:00 06/23/20 20:56 Atorvastatin 40 Mg Tablet PO 80 mg HS ANJEL Administration Enoxaparin Sodium 40 mg 06/13/20 09:00 06/24/20 08:09 Enoxaparin 40 Mg/0.4 Ml Syringe SUB-Q 40 mg DAILY ANJEL Administration Ibuprofen 200 mg 06/12/20 15:45 Ibuprofen 200 Mg Tablet PO Q6H PRN Pain Lisinopril 10 mg 06/13/20 09:00 06/24/20 08:08 Lisinopril 10 Mg Tablet PO 10 mg DAILY ANJEL Administration Melatonin 3 mg 06/12/20 21:00 06/23/20 20:57 Melatonin 3 Mg Tablet PO 3 mg HS ANJEL Administration Mirtazapine 15 mg 06/12/20 21:00 06/23/20 20:56 Mirtazapine 15 Mg Tablet PO 15 mg HS ANJEL Administration Multivitamins/Calcium 1 tablet 06/13/20 09:00 06/24/20 08:08 Therapeutic Multivitamins/Minerals Tab (*Bkc) PO 1 tablet DAILY ANJEL Administration Nystatin 5 ml 06/12/20 17:00 06/24/20 13:59 Nystatin 100,000 Units/Ml Susp 5 Ml Oral.Susp PO 07/23/20 17:01 5 ml QID ANJEL Administration Thiamine HCl 100 mg 06/13/20 09:00 06/24/20 08:08 Thiamine Hcl 100 Mg Tablet PO 100 mg DAILY ANJEL Administration Progress Note: A&P Assessment and Plan (1) Left hemiparesis: Code(s): G81.94 - Hemiplegia, unspecified affecting left nondominant side Status: Acute (2) Cognitive dysfunction: Code(s): F09 - Unspecified mental disorder due to known physiological condition Status: Acute (3) Expressive dysphasia: Code(s): R47.02 - Dysphasia Status: Acute (4) Dysphagia: Code(s): R13.10 - Dysphagia, unspecified Status: Acute (5) Hyperlipidemia: Code(s): E78.5 - Hyperlipidemia, unspecified Status: Acute (6) Hypertension: Code(s): I10 - Essential (primary) hypertension Status: Acute (7) Tobacco abuse: Code(s): Z72.0 - Tobacco use Status: Acute Additional Plan Patient doing well. He is preparing for home. Meds reconciled .
[2020-06-24 20:00] VITALS: PULSE 74; RESP 16; O2SAT 95
[2020-06-24] MEDS: MIRTAZAPINE 15 MG TABLET PO (21:11)
[2020-06-24] MEDS: ATORVASTATIN 40 MG TABLET 80 MG PO (21:11)
[2020-06-24] MEDS: MELATONIN 3 MG TABLET PO (21:11)
[2020-06-24 21:34] VITALS: BP 139/79; PULSE 74; RESP 16; TEMP 36.6; O2SAT 95
[2020-06-25 06:00] VITALS: BP 166/92; PULSE 74; RESP 18; TEMP 36.3; O2SAT 98
[2020-06-25] MEDS: NYSTATIN 100,000 UNITS/ML SUSP 5 ML ORAL.SUSP PO (08:56)
[2020-06-25] MEDS: THIAMINE HCL 100 MG TABLET PO (08:56)
[2020-06-25] MEDS: ENOXAPARIN 40 MG/0.4 ML SYRINGE SUB-Q (08:56)
[2020-06-25] MEDS: ASPIRIN 325 MG ENTERIC TABLET PO (08:56)
[2020-06-25] MEDS: THERAPEUTIC MULTIVITAMINS/MINERALS TAB (*BKC) 1 TABLET PO (08:56)
[2020-06-25] MEDS: lisinopriL 10 MG TABLET PO (08:56)
--- NOTE | 2020-06-25 12:29 | PCNFU ---
Nutrition Follow-Up Complete: Suboptimal oral intake related to CVA as evidenced by intakes averaging 50% of meals with patient stating dislike of modified diet. Goal: Patient to consume 75% of meals/supplements or greater. Patient is meeting current goal consuming 75-100% of meals. Pt current nutrition is soft and bite sized level 6 with Frozen Nutritional Treat BID. Last recorded weight is 58.5 kg. Recommend re-weighing patient. Bowel Motility: + BM 06/21 Labs Reviewed: No new labs. Meds Noted: Lipitor, Lovenox, Prinivil, Remeron, Vitamin B-1 Additional Notes: Spoke with patient. Patient confirmed having a good appetite consuming 75-100% of meals. His only complaint was receiving to large of portion sizes. He claims to have never eaten a ton of food so this is more than he is used to. Besides that he has no nutritional issues. He enjoys the food and the frozen nutritional treat providing 300 calories and 9 grams of protein each. While I was following up with patient I provided him with stroke education. Follow up in 7 days.
--- NOTE | 2020-06-25 12:49 | PCNSR ---
On 06/25/20, the student, Shelly Gomez, provided care and completed [facility] documentation on this patient. I have reviewed the student's documentation and agree with the findings.
--- NOTE | 2020-06-25 14:15 | WPDNEURORHBP ---
Subjective Date/time seen: 06/25/20 14:15 Patient was seen prior to his discharge. Patient is looking for to being back home. Patient voices no complaints Review of Systems Review of Systems: All systems reviewed & are unremarkable except as noted in HPI and below Functional Status Ambulation Ability Ability to Ambulate 10 Feet: Independent Ability to Ambulate 50 Feet With 2 Turns: Independent Ability to Ambulate 150 Feet: Independent Ambulation Assistive Devices: None Transfers Ability Ability to Transfer In/Out of Chair: Independent Exam Narrative: Exam Narrative: head is normocephalic neck is supple. Heart rate and rhythm is regular lungs are clear to auscultation Patient continues to have right visual field neglect right-sided decreased proprioception and motor planning. Cognition patient still demonstrates impaired insight, judgment, problem solving, communication is intact. Objective Data Vital Signs Vital Signs: Vital Signs - 24 hr 06/24/20 20:00 06/24/20 21:34 06/25/20 06:00 Temperature 36.6 C 36.3 C L Pulse Rate 74 74 74 Respiratory Rate 16 16 18 Blood Pressure 139/79 166/92 H Pulse Oximetry 95 95 98 Intake/Output Intake/Output: Intake & Output 06/22/20 06/23/20 06/24/20 06/25/20 23:59 23:59 23:59 23:59 Intake Total 434 759 9909 480 Balance 427 798 4494 480 Progress Note: A&P Assessment and Plan (1) Cognitive dysfunction: Code(s): F09 - Unspecified mental disorder due to known physiological condition Status: Acute (2) Expressive dysphasia: Code(s): R47.02 - Dysphasia Status: Acute (3) Dysphagia: Code(s): R13.10 - Dysphagia, unspecified Status: Acute (4) Hyperlipidemia: Code(s): E78.5 - Hyperlipidemia, unspecified Status: Acute (5) Hypertension: Code(s): I10 - Essential (primary) hypertension Status: Acute (6) Tobacco abuse: Code(s): Z72.0 - Tobacco use Status: Acute Additional Plan Patient doing well. He is preparing for home. Meds reconciled .
--- NOTE | 2020-06-25 15:38 | PM.DS ---
DS: Admitting Diagnosis Admitting Diagnosis Admitting Diagnosis: CVA bilateral watershed MCA ischemic stroke DS: Discharge Diagnosis Discharge Diagnosis (1) Left hemiparesis: Code(s): G81.94 - Hemiplegia, unspecified affecting left nondominant side Status: Acute (2) Expressive dysphasia: Code(s): R47.02 - Dysphasia Status: Acute (3) Dysphagia: Code(s): R13.10 - Dysphagia, unspecified Status: Acute (4) Cognitive dysfunction: Code(s): F09 - Unspecified mental disorder due to known physiological condition Status: Acute (5) Tobacco abuse: Code(s): Z72.0 - Tobacco use Status: Acute (6) Hyperlipidemia: Code(s): E78.5 - Hyperlipidemia, unspecified Status: Acute (7) Hypertension: Code(s): I10 - Essential (primary) hypertension Status: Acute DS: Summary Hospital Course Reason for hospitalization: CVA Hospital Course: patient was admitted to [facility] for stroke rehabilitation. Medically patient remained stable throughout his hospital stay. Patient continues to have cognitive deficits that impact his functional mobility. Patient is at a supervision to independent mobility level but still requires supervision for problem solving memory. Patient would benefit from ongoing therapy Time Spent with Patient Time attestation: ADMISSION FUNCTION: Eating substantial assistance Oral Care partial assistance Toileting Hygiene substantial assistance Shower/Bathing substantial licensed nursing assistant Upper Body Dressing substantial assistance Lower Body Dressing substantial assistance Donning/[place] Footwear dependent Rolling Left and Right assist antral assistance Sit to Lying substantial assistance Lying to Sitting partial assist for Sit to Stand substantial assisted Bed to Chair Transfers partial assistance Toilet Transfers substantial assistance Car Transfers partial assistance Walking 10' partial assistance Walking 50' with Two Turns partial assistance Walking 150' patient unable Curb or Step partial assistance 4 Steps partial assistance 12 Steps partial assist Picking Up Object partial assistanc GOALS: Eating setup assist Oral Care setup assistance Toileting Hygiene INDEPENDENT Shower/Bathing supervision Upper Body Dressing setup Lower Body Dressing setup Donning/[place] Footwear set up assist Rolling Left and Right status independent Sit to Lying INDEPENDENT Lying to Sitting INDEPENDENT Sit to Stand INDEPENDENT Bed to Chair Transfers INDEPENDENT Toilet Transfers INDEPENDENT Car Transfers INDEPENDENT Walking 10' INDEPENDENT Walking 50' with Two Turns INDEPENDENT Walking 150' INDEPENDENT Curb or Step INDEPENDENT 4 Steps INDEPENDENT 12 Steps INDEPENDENT Picking Up Object INDEPENDENT DISCHARGE PERFORMANCE: Eating setup Oral Care setup Toileting Hygiene supervision Shower/Bathing supervision Upper Body Dressing supervision Lower Body Dressing supervision Donning/[place] Footwear supervision Rolling Left and Right INDEPENDENT Sit to Lying INDEPENDENT Lying to Sitting INDEPENDENT Sit to Stand INDEPENDENT Bed to Chair Transfers INDEPENDENT Toilet Transfers INDEPENDENT Car Transfers INDEPENDENT Walking 10' INDEPENDENT Walking 50' with Two Turns INDEPENDENT Walking 150' INDEPENDENT Curb or Step INDEPENDENT 4 Steps INDEPENDENT 12 Steps INDEPENDENT Picking Up Object INDEPENDENT ] The patient had no falls. Total time spent providing and/or coordinating discharge services:60 min Exam Narrative: Exam Narrative: patient is seen this morning in no acute distress. Heart rate and rhythm is regular lungs are clear to auscultation patient is at an independent level without assistive device. Patient demonstrates cognitive deficits that impair his overall safety. Cognition remains impaired with word-finding deficits, judgment, problem-solving deficits. Discharge Plan Discharge Discharging
== END 2020-06-25 13:00 | disposition home health service (06) | DRG 57 ==
PROVIDERS: Admitting Provider Psychiatry & Neurology Neurology; PCP Family Medicine; Visit Provider Physical Medicine & Rehabilitation
DX: I69.354 Hemiplegia and hemiparesis following cerebral infarction affecting left non-dominant side (principal); I69.321 Dysphasia following cerebral infarction; I69.319 Unspecified symptoms and signs involving cognitive functions following cerebral infarction; I69.391 Dysphagia following cerebral infarction; I69.398 Other sequelae of cerebral infarction; H53.40 Unspecified visual field defects; R13.10 Dysphagia, unspecified; E78.5 Hyperlipidemia, unspecified; F17.210 Nicotine dependence, cigarettes, uncomplicated; I65.23 Occlusion and stenosis of bilateral carotid arteries; I10 Essential (primary) hypertension; M19.90 Unspecified osteoarthritis, unspecified site; Z98.890 Other specified postprocedural states; Z85.46 Personal history of malignant neoplasm of prostate
CPT/HCPCS: 36415; 80048; 80061; 85025; 92507; 92523; 92526; 92610; 97110; 97116; 97161; 97166; 97530; 97535; A9270; J1650